=== PATIENT | male | born 1985 | race Caucasian/White ===

== ENCOUNTER 2021-07-27 09:22 | Emergency (ER) | payer BC ==
[2021-07-27 11:09] LABS: Bilirubin Neg (Negative); Blood, Urine Negative (Negative); Clarity Clear (Clear); Glucose, Urine (Dipstick) Normal (Negative); Ketone, Urine Negative (Negative); Leukocyte Negative (Negative); Nitrite Negative (Negative); Protein, Urine (Dipstick) Negative (Neg-Trace); Urobilinogen Normal mg/dL (Less than 2)
[2021-07-27] MEDS ORDERED: Morphine 4 MG/ML VIAL ONE (11:19)
[2021-07-27] MEDS ORDERED: Dexamethasone 10 MG/ML VIAL ONE (11:19)
== END 2021-07-27 11:29 | disposition home or self-care (01) ==
LOC: CSHERS 09:22
DX: M54.42 Lumbago with sciatica, left side (principal); F17.290 Nicotine dependence, other tobacco product, uncomplicated
CPT/HCPCS: 81003; 96372; 99283; J1100; J2270